=== PATIENT | male | born 1955 | race Caucasian/White ===

== ENCOUNTER 2017-02-02 07:54 | Inpatient (IN) ==
--- NOTE | 2017-02-01 21:07 | Discharge Summary ---
<Maryam Man - Last Filed: 02/01/17 21:05> Date of Encounter: 02/01/17 - Discharge Diagnosis (1) Rotator cuff tear arthropathy of right shoulder Priority: Primary Status: Acute (2) COPD (chronic obstructive pulmonary disease) Priority: Secondary Status: Chronic Qualifiers: COPD type: unspecified COPD Qualified Code(s): J44.9 - Chronic obstructive pulmonary disease, unspecified (3) Anxiety Priority: Secondary Status: Chronic (4) Tobacco use Priority: Secondary Status: Chronic (5) Hepatitis Priority: Secondary Status: Chronic (6) Mental health disorder Priority: Secondary Status: Acute (7) Chronic pain Priority: Secondary Status: Chronic Qualifiers: Chronic pain type: other chronic pain Qualified Code(s): G89.29 - Other chronic pain - Discharge Medications Home Medications: OxyCODONE Immed Rel [Roxicodone 5 MG] 5 - 10 mg PO Q6HR PRN #40 tablet 02/01/17 [Rx] Albuterol Sulfate [Ventolin Hfa] 2 puff IH Q6H PRN 02/02/17 [History] ClonazePAM [Klonopin] 1 mg PO TID 02/02/17 [History] Cyclobenzaprine HCl 5 mg PO TID 02/02/17 [History] Famotidine [Pepcid] 40 mg PO HS 02/02/17 [History] Quetiapine Fumarate [Seroquel] 50 mg PO HS 02/02/17 [History] Tiotropium [Spiriva] 18 mcg IH DAILY 02/02/17 [History] Allergies/Adverse Reactions: Allergies butorphanol [From Stadol] Adverse Reaction (Verified 02/02/17 09:04) See Comments MOOD CHANGES diphenhydramine [From Benadryl] Adverse Reaction (Verified 02/02/17 09:04) See Comments MOOD CHANGES hydroxyzine [From Vistaril] Adverse Reaction (Verified 02/02/17 09:04) See Comments MOOD CHANGES ketorolac [From Toradol] Adverse Reaction (Verified 02/02/17 09:04) See Comments MOOD CHANGES meloxicam [From Mobic] Adverse Reaction (Verified 02/02/17 09:04) See Comments MOOD CHANGES meperidine [From Demerol] Adverse Reaction (Verified 02/02/17 09:04) See Comments MOOD CHANGES Primary care physician: PCP NO - Patient Status Disposition: Home, Self-Care Condition: Good - Discharge Instructions Follow Up With: NO,PCP [Primary Care Provider] - Additional Instructions: Discharge Instructions: Total Shoulder Please call [facility] ([phone]), your Primary Care Physician, or report to the Emergency Room if you have any of the following symptoms: Nausea, vomiting, fever greater that 101.5, swelling, chest pain, shortness of breath, increased pain/redness/drainage/odor for your incision site, numbness/ tingling, or any other concerning symptoms. ACTIVITY: Always keep your arm in the sling. Do not raise your arm away from your body. Do not use your arm to help with getting in or out of bed. No weight bearing permitted. Only perform those exercises given to you by your therapist. MEDICATIONS: Upon discharge resume your home medications. Take all the medications as prescribed. Take a stool softener if taking narcotic pain medications. Stool softeners are only effective if you drink enough fluids. Drink 6-8 glass of water or fluids a day, unless this is not allowed for another health problem. Despite using stool softeners, if you haven't had a bowel movement in 3 days, please switch to a gentle laxative. Gentle laxatives are sold over the counter. You should have a bowel movement within 24 hours, if not call the office. You will be discharged from the hospital with a prescription for pain medication. You are encouraged to decrease the use of narcotic pain medication as tolerated. Should you require a refill, please call the office. [facility] prescribes narcotic pain medication for only 4-6 weeks after surgery. If you require pain medication beyond this time period, you may be referred to your Primary Care Physician or to the Pain Clinic for further evaluation. Plan ahead for refills on pain medication as many narcotics either need to be picked up at the office or mailed. It is best to call 48-72 hours in advance of needing a prescription refill so you don't run out of medication. To help control the post-operative pain, you may take NSAIDs (Aleve,Advil, Motrin, ibuprofen, naprosyn) or Tylenol as prescribed on the bottle in addition to the pain medication. WOUND CARE: Leave the dressing on for 7 days. You may change the dressing if it becomes saturated greater than 50%. You can shower but not a tub bath or submerge your incision in water. Wash your hands with antibacterial soap, rinse and dry prior to any wound care. If you have alexus the visiting nurse or rehab facility can remove the stapes 10-14 days after surgery and place steri -strips across the wound. Leave the steri-strips in place until they fall off on their won. You may let water from the shower run on top of the steri- stirips. If you do not have a visiting nurse or rehab facility, you will need to return to the office at 10-14 days for the alexus to be removed. FOLLOW-UP: Please follow up with your surgeon in the orthopedic clinic, as scheduled - Hospital Course Hospital course: Mr. Owens is a 61 year old male - Time Spent with Patient Total time spent providing and/or coordinating discharge services: <Jim Beavers - Last Filed: 02/03/17 06:25> Date of Encounter: 02/03/17 Time of Encounter: 06:25 - Discharge Diagnosis (1) Unstable reverse total shoulder arthroplasty Priority: Primary Status: Acute Qualifiers: Encounter type: subsequent encounter Qualified Code(s): T84.028D - Dislocation of other internal joint prosthesis, subsequent encounter (2) COPD (chronic obstructive pulmonary disease) Priority: Secondary Status: Chronic Qualifiers: COPD type: unspecified COPD Qualified Code(s): J44.9 - Chronic obstructive pulmonary disease, unspecified (3) Anxiety Priority: Secondary Status: Chronic (4) Tobacco use Priority: Secondary Status: Chronic (5) Hepatitis Priority: Secondary Status: Chronic (6) Mental health disorder Priority: Secondary Status: Chronic (7) Chronic pain Priority: Secondary Status: Chronic Qualifiers: Chronic pain type: other chronic pain Qualified Code(s): G89.29 - Other chronic pain (8) Loosening of total shoulder replacement Priority: Primary Status: Acute Qualifiers: Encounter type: subsequent encounter Qualified Code(s): T84.038D - Mechanical loosening of other internal prosthetic joint, subsequent encounter; Z96.619 - Presence of unspecified artificial shoulder joint Primary care physician: PCP NO - Patient Status Functional capacity at discharge: independent ambulation Overall status at discharge: patient is progressing back to baseline - Hospital Course Hospital course: Mr. Owens is a 61 year old male The patient had an uneventful postoperative course. They received antibiotics and physical therapy and were discharged in stable condition. There will follow -up in the office in 2 weeks. - Time Spent with Patient Total time spent providing and/or coordinating discharge services:
--- NOTE | 2017-02-02 08:03 | History & Physical Report ---
Date of Encounter: 02/02/17 Time of Encounter: 08:03 24 Hour HP Update - Instructions Instructions: If the History and Physical is less than 30 days old and was completed prior to A.M. admission and or procedure and has NOT been updated on calendar day of procedure please complete this update prior to performing procedure. - Update Patient reports changes in Medical Condition: No Changes in examination, assessment, or condition: No Changes in Medication: No Preop tests/diagnostics Reviewed: Yes Surgery Remains Indicated: Yes Consent for Planned Operative Procedure(s) Verified: Yes - Pre-Operative Checklist Preoperative Checklist Indicated: No Prophylactic Antibiotic Ordered: Yes Is VTE Prophylaxis Indicated?: Yes
[2017-02-02] MEDS ORDERED: Lidocaine -MPF 1% 2 ML VIAL ID ONE (08:19)
[2017-02-02] MEDS ORDERED: Vancomycin 1,000 MG in D5% in Water 250 ML IVPB ONE (08:19)
[2017-02-02] MEDS ORDERED: Albuterol 2.5 MG/3 ML NEBULIZER IH ONE (08:19)
[2017-02-02] MEDS ORDERED: Ringers Solution, Lactated 500 ML IVC SCH (08:30)
[2017-02-02] MEDS ORDERED: Famotidine 20 MG/2 ML VIAL IVP ONE (08:31)
--- NOTE | 2017-02-02 08:40 | Anesthesia Evaluation PreOp ---
Date of Encounter: 02/02/17 Time of Encounter: 08:40 - Past History Planned Operation: Rt Total Shoulder Replacement Cardiac History: HTN Pulmonary History: Smoker, Asthma, COPD MOTH EXTERMINATOR History: Denies Any Significant HX Other Medical History: Other (Anxiety...Schizophrenia) Anesthesia History: No Prior Anesthetic Complications Alcohol Use: none Drug use: none Medications and Allergies OxyCODONE Immed Rel [Roxicodone 5 MG] 5 - 10 mg PO Q6HR PRN #40 tablet 02/01/17 [Rx] Allergies butorphanol [From Stadol] Allergy (Verified 01/19/17 13:17) See Comments diphenhydramine [From Benadryl] Allergy (Verified 01/19/17 13:17) See Comments hydroxyzine [From Vistaril] Allergy (Verified 01/19/17 13:17) See Comments ketorolac [From Toradol] Allergy (Verified 01/19/17 13:17) See Comments meloxicam [From Mobic] Allergy (Verified 01/19/17 13:17) See Comments meperidine [From Demerol] Allergy (Verified 01/19/17 13:17) See Comments - Meds/Allergy Pre-op Review Medications Reviewed: Yes Allergies Reviewed: Yes Beta Blockers on Current Med List: No Anesthesia Results - Labs Laboratory Tests 01/19/17 01/19/17 13:30 13:30 Hgb 12.9 Hct 38.6 Plt Count 188 Sodium 139 Potassium 4.4 BUN 15 Creatinine 0.80 - Imaging EKG: pending Anesthesia Exam O2 Sat Height 1.8 m Weight 70.307 kg Height: 5'11 Weight: 155 lbs NPO (# of Hours): MN Pain Scale: 0 - HEENT Pupil (Motor): Pupils equal, EOMI Mallampati: II Teeth: Normal Oral Opening: Greater than 3 - MOTH EXTERMINATOR LOC: Oriented MOTH EXTERMINATOR Motor: Normal RUE, Normal LUE, Normal RLE, Normal LLE, Normal Face MOTH EXTERMINATOR Sensory: Normal: RUE, LUE, RLE, LLE, Face - Cardiac Rhythm: Regular Murmur: None JVD: No Carotid Bruit: No - Pulmonary Breath Sounds: bilateral Clear Respiratory Effort: Symmetrical Anesthesia Assess/Plan ASA Score: 3 (HTN COPD [place]) Modified [place] Scale for Level of Consciousness: Cooperative, oriented, and tranquil Anesthetic Plan: General, Regional Monitoring Plan: Standard Monitors Recovery Plan: PACU (Discussed GA and RA, agrees to proceed)
[2017-02-02] MEDS ORDERED: *HR* Propofol 200 MG/20 ML VIAL IVP ONE (08:46)
[2017-02-02] MEDS ORDERED: Ondansetron 4 MG/2 ML VIAL ONE (08:46)
[2017-02-02] MEDS ORDERED: *HR* FentaNYL (PF) 100 MCG/2 ML VIAL ONE (08:46)
[2017-02-02] MEDS ORDERED: *HR* Succinylcholine 200 MG/10 ML VIAL IVP ONE (08:46)
[2017-02-02] MEDS ORDERED: *HR* Midazolam HCl 2 MG/2 ML VIAL ONE (08:46)
[2017-02-02] MEDS ORDERED: Neostigmine Methylsulfate 3 MG/3 ML SYRINGE ONE (08:46)
[2017-02-02] MEDS ORDERED: *HR* Promethazine 25 MG/ML VIAL IVP PRN (08:54)
[2017-02-02] MEDS ORDERED: *HR* HYDROmorphone (PF) 1 MG/ML SYRINGE IVP PRN ×2 (08:54→12:00)
[2017-02-02] MEDS ORDERED: Ondansetron 4 MG/2 ML VIAL IVP ONE (08:54)
[2017-02-02] MEDS ORDERED: ROPIVACAINE HCL/PF 0.5% 30 ML VIAL ONE (09:34)
--- NOTE | 2017-02-02 09:53 | Anesthesia Procedures ---
Date of Encounter: 02/02/17 Time of Encounter: 09:35 Procedures: Anesthesia - Nerve Block Procedure Date: 02/02/17 Time: 09:35 Allergies/Adv Reactions: see list Surgical Procedure: right total shoulder Checklist: Correct Patient Identifier, Correct procedure, History checked Correct side: Right Blood Thinner: No Monitor Applied: BP, Pulse Oximetry Supplemental Oxygen via Nasal Cannula (L/min): 2 Sedation: Versed (mg): 2 Sedation: Fentanyl (mcg): 100 Indication: Post Op Analgesia Pre-op Neuro Deficits: No Block Type: Supraclavicular Catheter placed: No Sterile Technique: Yes Ultrasound used: Yes Anatomy identified: Yes Visual spread of Local: Yes Neuro Stimulation: No Blood on Needle Aspiration: No Smooth Injection of Local: Yes Pain with Injection of Local: No Prep: Chlorhexadine Needle: 22 x 50 mm Stimuplex Local: 0.25% Bupivicaine w/Clonidine 20 mcg/cc, Ropivacaine (30ml of 0.5%) Volume (cc): 50 Number of Attempts: 1 Complications: None/effective block Vitals: vss though out, block per request of audrey
[2017-02-02] MEDS ORDERED: Bupivacaine/Clonidine Syringe 1 EACH SYRINGE ONE (10:02)
[2017-02-02] MEDS ORDERED: EPHEDrine 50 MG/ML VIAL ONE (10:38)
--- NOTE | 2017-02-02 11:10 | Orthopedic Operative Note ---
Date of procedure: 02/02/17 Pre-op diagnosis: Aseptic loosening unstable right total shoulder Post-op diagnosis: same Procedure: Procedure: Right Revision Total Shoulder replacement reverse Estimated blood loss: 200 cc Hardware: Arthrex: Large glenoid baseplate, 24.5 screws one 6.5 screw, 42 lateral sphere, 11 stem 6 Carly Procedural Notes: Aseptic loosening of the humeral stem, significant glenoid wear. Operative procedure: The patient was brought to the operating room and placed on the operating room table. The patient was placed in the modified beachchair position. All pressure points were padded appropriately. And the head was stabilized in the neutral position. The operative extremity was prepped and draped in the sterile surgical fashion. The patient received IV antibiotics prior to skin incision. A standard deltopectoral approach was made to the operative shoulder. Incision was made through the old incision, through the skin and subcutaneous tissue, hemo stasis was obtained with Bovie cautery. Using careful blunt dissection the cephalic vein was identified and mobilized medially. The deltopectoral interval was developed and the clavipectoral fascia was incised. An extensive debridement was performed, and the shoulder was dislocated. Using an osteotome to clear out the soft tissue, the humeral component was gently removed. This was grossly loose. Anterior and posterior Bankart retractors were used to expose the glenoid, the glenoid component was removed without incident. The glenoid component showed significant glenoid poly-wear disease. The glenoid guide was seated the centering hole was made the glenoid was reamed with the appropriate large reamer. The large glenoid baseplate was seated and secured and locked in place with the locking screws. The baseplate was irrigated and dried 42 lateral glenosphere was seated and secured. Attention was then turned to the humeral side. The humerus was reamed and broached up to its appropriate size 11 in 20 degrees of retroversion. Trial reduction found the shoulder to be relocatable. Trial components were removed, real implants were seated. Trial reduction found the shoulder to be stable with the appropriate implants, 6 Carly. The trial implants were removed the real implants were seated and secured in the shoulder was reduced. The patient had excellent motion and excellent stability no shuck. The deep tissue was irrigated with pulse irrigation deltopectoral interval was closed with #2 PDS suture . Superficially the subcutaneous tissue was closed with 0 PDS suture, the skin was closed with Dermabond. The patient placed sterile dressing, postoperative brace extubated and transferred to the recovery room in stable condition. Anesthesia: GETA Surgeon: Jim Beavers Chronometer Repairer: Maryam Man Condition: stable Disposition: PACU
[2017-02-02 11:49] LABS: Hematocrit 33.6 % (37.5-50.1); Hemoglobin 11.2 g/dL (12.9-16.9)
--- NOTE | 2017-02-02 11:49 | Anesthesia Evaluation Post Op ---
Date of Encounter: 02/02/17 Time of Encounter: 11:50 - Vital Signs Vital Signs: Vital Signs/O2 Sat/Glucose, Most Current Temp Pulse Resp BP Pulse Ox 02/02/17 11:35 83 22 153/88 95 02/02/17 11:25 98.0 F 79 14 136/70 100 02/02/17 10:02 81 16 135/85 98 02/02/17 09:48 84 16 142/81 97 02/02/17 09:35 86 16 141/91 97 02/02/17 08:33 99.0 F 81 18 130/84 96 - Lungs Lungs: Clear Ascult./Percussion - Airway Airway: Non-obstructed - Cardiovascular Regular Rate - Mental Status Mental Status: Alert & Oriented, Answers Appropriately - Pain Pain Scale: 0 - Nausea Vomiting Nausea Vomiting: Not Present - Hydration Hydration: Ice chips - Discharge PostOp Status: Transfer Patient to floor
--- NOTE | 2017-02-02 11:55 | Anesthesia Evaluation Post Op ---
Date of Encounter: 02/02/17 Time of Encounter: 11:50 - Vital Signs Vital Signs: Last Vital Signs Temp 98.0 F 02/02/17 11:25 Pulse 84 02/02/17 11:45 Resp 20 02/02/17 11:45 BP 148/89 02/02/17 11:45 Pulse Ox 96 02/02/17 11:45 - Lungs Lungs: Clear Ascult./Percussion - Airway Airway: Non-obstructed - Cardiovascular Regular Rate - Mental Status Mental Status: Alert & Oriented, Answers Appropriately - Pain Pain Scale: 3 Pain Scale used: Numeric (1 - 10) - Nausea Vomiting Nausea Vomiting: Not Present - Hydration Hydration: Ice chips - Discharge PostOp Status: Transfer Patient to floor Attestation: Patient alert and communicative. Meets criteria for floor transfer.
[2017-02-02] MEDS ORDERED: Acetaminophen 325 MG TABLET PO PRN (12:00)
[2017-02-02] MEDS ORDERED: *HR* OxyCODONE Immed Rel 5 MG TABLET PO PRN ×2 (12:00)
[2017-02-02] MEDS ORDERED: Sennosides 8.6 MG TABLET PO PRN (12:00)
[2017-02-02] MEDS ORDERED: Ondansetron 4 MG/2 ML VIAL IVP PRN (12:00)
[2017-02-02] MEDS ORDERED: Temazepam 15 MG CAPSULE PO PRN (12:00)
[2017-02-02] MEDS ORDERED: Naloxone 0.4 MG/ML INJ IVP PRN (12:00)
[2017-02-02] MEDS ORDERED: Ringers Solution, Lactated 1,000 ML IVC SCH (12:00)
[2017-02-02] MEDS ORDERED: MOM Conc 10 ML UD.LIQ PO PRN (12:00)
[2017-02-02] MEDS ORDERED: clonazePAM 1 MG TABLET PO SCH (15:00)
[2017-02-02] MEDS ORDERED: *HR* Enoxaparin 30 MG/0.3 ML SYRINGE SQ SCH ×2 (15:30→18:00)
[2017-02-02] MEDS ORDERED: ceFAZolin 2,000 MG in D5% in Water 100 ML IVPB SCH (18:00)
--- NOTE | 2017-02-02 18:55 | Electrocardiograph Report ---
[address] [address] Test Date: 2017-02-02 Pat Name: Marcos Owens Department: 106 Room: [facility] Gender: M [employer] Consultant: LIDIA : [id number] Requested By: London Rushing Order Number: [id number] Reading MD: Ariel Bell MD Measurements Intervals [place] Rate: 79 P: 74 [place]: 159 QRS: -5 QRSD: 89 T: 44 QT: 366 QTc: 400 Interpretive Statements SINUS RHYTHM LOW QRS VOLTAGE IN EXTREMITY LEADS Electronically Signed On 02-02-2017 18:53:56 EDT by Ariel Bell MD
[2017-02-02 19:29] VITALS: BP 121/70
[2017-02-02] MEDS ORDERED: Famotidine 20 MG TABLET PO SCH (21:00)
[2017-02-03] MEDS ORDERED: Tiotropium 18 MCG inhalation IH SCH (09:00)
== END 2017-02-02 17:12 | disposition home or self-care (01) | DRG 315 ==
LOC: SAMDAY 07:54 → 3NENU 11:55
PROVIDERS: ADMIT Orthopaedic Surgery; ATTEND Orthopaedic Surgery

== ENCOUNTER 2018-02-22 13:44 | Inpatient (IN) ==
--- NOTE | 2018-02-21 22:50 | Discharge Summary ---
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 (3) Opioid-related disorder Priority: Secondary Status: Chronic (4) Schizophrenia Priority: Secondary Status: Chronic Qualifiers: Schizophrenia type: unspecified Qualified Code(s): F20.9 - Schizophrenia, unspecified (5) HTN (hypertension) Status: Acute (6) Asthma Priority: Secondary Status: Chronic Qualifiers: Asthma severity: unspecified severity Asthma persistence: unspecified Asthma complication type: unspecified Qualified Code(s): J45.909 - Unspecified asthma, uncomplicated (7) COPD (chronic obstructive pulmonary disease) Priority: Secondary Status: Chronic Qualifiers: COPD type: unspecified COPD Qualified Code(s): J44.9 - Chronic obstructive pulmonary disease, unspecified (8) Tobacco use Priority: Secondary Status: Chronic (9) Hepatitis Priority: Secondary Status: Chronic - Hospital Course Hospital course: Mr. Owens is a 62 year old male - Time Spent with Patient Total time spent providing and/or coordinating discharge services: - Discharge Medications Home Medications: Albuterol Sulfate [Ventolin Hfa] 2 puff IH Q6H PRN 02/02/17 [History] Famotidine [Pepcid] 40 mg PO HS 02/02/17 [History] Quetiapine Fumarate [Seroquel] 50 mg PO HS 02/02/17 [History] Tiotropium [Spiriva] 18 mcg IH DAILY 02/02/17 [History] clonazePAM [Klonopin] 1 mg PO TID PRN 02/02/17 [History] Buprenorphine HCl/Naloxone HCl [Bunavail 2.1-0.3 mg Film] 1 film BC BID [History] Cyanocobalamin (B-12) [Vitamin B12] 1 ml IJ QMONTH 02/22/18 [History] Ferrous Sulfate [Iron] 325 mg PO DAILY 02/22/18 [History] Fluticasone Propionate Nasal [Flonase] 1 spray NS DAILY 02/22/18 [History] Ibuprofen 800 mg PO TID PRN 02/22/18 [History] Loratadine [Claritin] 10 mg PO DAILY 02/22/18 [History] Oxycodone HCl 5 mg PO Q6H PRN 7 Days #28 tablet 02/22/18 [Rx] Tiotropium [place] [Spiriva Respimat] 1 puff IH DAILY 02/22/18 [History] Allergies/Adverse Reactions: 3 Allergy/AdvReac Type Severity Reaction Status Date / Time butorphanol [From Stadol] AdvReac See Verified 02/22/18 14:09 Comments diphenhydramine AdvReac See Verified 02/22/18 14:09 [From Benadryl] Comments hydroxyzine [From Vistaril] AdvReac See Verified 02/22/18 14:09 Comments ketorolac [From Toradol] AdvReac See Verified 02/22/18 14:09 Comments meloxicam [From Mobic] AdvReac See Verified 02/22/18 14:09 Comments meperidine [From Demerol] AdvReac See Verified 02/22/18 14:09 Comments Primary care physician: PCP NONE - Patient Status Disposition: Home, Self-Care Condition: Good - Discharge Instructions Follow Up With: NONE,PCP [Primary Care Provider] - <Jim Beavers - Last Filed: 02/23/18 06:37> Orders not resulted at time of discharge: Pending orders 02/22/18 01:00 XR shoulder complete RT [XR] Routine Hemoglobin and Hematocrit [HEME] Routine Date of Encounter: 02/23/18 Time of Encounter: 06:36 - Discharge Diagnosis (1) COPD (chronic obstructive pulmonary disease) Priority: Secondary Status: Chronic Qualifiers: COPD type: unspecified COPD Qualified Code(s): J44.9 - Chronic obstructive pulmonary disease, unspecified (2) Anxiety Priority: Secondary Status: Chronic (3) Tobacco use Priority: Secondary Status: Chronic (4) Hepatitis Priority: Secondary Status: Chronic (5) Mental health disorder Priority: Secondary Status: Chronic (6) Chronic pain Priority: Secondary Status: Chronic Qualifiers: Chronic pain type: other chronic pain Qualified Code(s): G89.29 - Other chronic pain (7) Loosening of total shoulder replacement Priority: Primary Status: Chronic Qualifiers: Encounter type: subsequent encounter Qualified Code(s): T84.038D - Mechanical loosening of other internal prosthetic joint, subsequent encounter; Z96.619 - Presence of unspecified artificial shoulder joint (8) Opioid-related disorder Priority: Secondary Status: Chronic (9) Schizophrenia Priority: Secondary Status: Chronic Qualifiers: Schizophrenia type: unspecified Qualified Code(s): F20.9 - Schizophrenia, unspecified (10) HTN (hypertension) Priority: Secondary Status: Acute Qualifiers: Hypertension type: unspecified Qualified Code(s): I10 - Essential (primary ) hypertension (11) Asthma Priority: Secondary Status: Chronic Qualifiers: Asthma severity: unspecified severity Asthma persistence: unspecified Asthma complication type: unspecified Qualified Code(s): J45.909 - Unspecified asthma, uncomplicated (12) Status post total replacement of right shoulder Priority: Primary Status: Chronic - Hospital Course Hospital course: Mr. Owens is a 62 year old male Status post revision right total shoulder. The patient had an uneventful postoperative course. They received antibiotics and physical therapy and were discharged in stable condition. There will follow -up in the office in 2 weeks. - Time Spent with Patient Total time spent providing and/or coordinating discharge services: Primary care physician: PCP NONE - Patient Status Functional capacity at discharge: independent ambulation Overall status at discharge: patient is progressing back to baseline
[2018-02-22] MEDS ORDERED: CeFAZolin Syr 2,000MG/20 ML 2,000 MG/20 ML SYRINGE IVPB ONE (14:06)
[2018-02-22] MEDS ORDERED: Albuterol 2.5 MG/3 ML NEBULIZER IH ONE (14:06)
[2018-02-22] MEDS ORDERED: Ringers Solution, Lactated 1,000 ML IVC SCH ×2 (14:15→18:19)
--- NOTE | 2018-02-22 14:19 | History & Physical Report ---
Date of Encounter: 02/22/18 Time of Encounter: 14:18 24 Hour HP Update - Instructions Instructions: If the History and Physical is less than 30 days old and was completed prior to A.M. admission and or procedure and has NOT been updated on calendar day of procedure please complete this update prior to performing procedure. - Update Patient reports changes in Medical Condition: No Changes in examination, assessment, or condition: No Changes in Medication: No Preop tests/diagnostics Reviewed: Yes Surgery Remains Indicated: Yes Consent for Planned Operative Procedure(s) Verified: Yes - Pre-Operative Checklist Preoperative Checklist Indicated: No Prophylactic Antibiotic Ordered: Yes Is VTE Prophylaxis Indicated?: Yes
--- NOTE | 2018-02-22 14:25 | Anesthesia Evaluation PreOp ---
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: Other (Anxiety, Schizophrenia) Other Medical History: GERD Anesthesia History: No Prior Anesthetic Complications, Past Anesthesia Alcohol Use: none Drug use: none Medications and Allergies Albuterol Sulfate [Ventolin Hfa] 2 puff IH Q6H PRN 02/02/17 [History] Famotidine [Pepcid] 40 mg PO HS 02/02/17 [History] Quetiapine Fumarate [Seroquel] 50 mg PO HS 02/02/17 [History] Tiotropium [Spiriva] 18 mcg IH DAILY 02/02/17 [History] clonazePAM [Klonopin] 1 mg PO TID PRN 02/02/17 [History] Buprenorphine HCl/Naloxone HCl [Bunavail 2.1-0.3 mg Film] 1 film BC BID [History] Cyanocobalamin (B-12) [Vitamin B12] 1 ml IJ QMONTH 02/22/18 [History] Ferrous Sulfate [Iron] 325 mg PO DAILY 02/22/18 [History] Fluticasone Propionate Nasal [Flonase] 1 spray NS DAILY 02/22/18 [History] Ibuprofen 800 mg PO TID PRN 02/22/18 [History] Loratadine [Claritin] 10 mg PO DAILY 02/22/18 [History] Oxycodone HCl 5 mg PO Q6H PRN 7 Days #28 tablet 02/22/18 [Rx] Tiotropium [place] [Spiriva Respimat] 1 puff IH DAILY 02/22/18 [History] 3 Allergy/AdvReac Type Severity Reaction Status Date / Time butorphanol [From Stadol] AdvReac See Verified 02/22/18 14:09 Comments diphenhydramine AdvReac See Verified 02/22/18 14:09 [From Benadryl] Comments hydroxyzine [From Vistaril] AdvReac See Verified 02/22/18 14:09 Comments ketorolac [From Toradol] AdvReac See Verified 02/22/18 14:09 Comments meloxicam [From Mobic] AdvReac See Verified 02/22/18 14:09 Comments meperidine [From Demerol] AdvReac See Verified 02/22/18 14:09 Comments - Meds/Allergy Pre-op Review Medications Reviewed: Yes Allergies Reviewed: Yes Beta Blockers on Current Med List: No Anesthesia Results - Labs Laboratory Tests 02/12/18 02/12/18 11:40 11:40 Hgb 12.5 L Plt Count 160 Potassium 4.0 Creatinine 0.71 - Imaging EKG: report reviewed (SINUS RHYTHM LOW QRS VOLTAGE IN EXTREMITY LEADS) Anesthesia Exam O2 Sat Height 1.75 m Weight 71.668 kg Vital Signs/O2 Sat, Most Current Temp Pulse Resp BP Pulse Ox 98.1 F 86 18 147/88 97 02/22/18 14:27 02/22/18 14:27 02/22/18 14:27 02/22/18 14:27 02/22/18 14:27 NPO (# of Hours): 8 - HEENT Mallampati: II Teeth: Normal, Poor dentition Oral Opening: Greater than 3 - FILLER SPREADER LOC: Oriented (Anxious) - Cardiac Rhythm: Regular - Pulmonary Breath Sounds: bilateral Clear Anesthesia Assess/Plan ASA Score: 3 Modified [place] Scale for Level of Consciousness: Anixous, agitated or restless Anesthetic Plan: General, Regional (For postoperative pain per surgeon request) Monitoring Plan: Standard Monitors Recovery Plan: PACU Anes Supervising Prov Stmt: Patient informed and consented. Risks, benefits, and alternatives discussed. Patient wishes to proceed.
[2018-02-22] MEDS ORDERED: Lidocaine -MPF 2% 2 ML VIAL ONE (14:50)
[2018-02-22] MEDS ORDERED: *HR* FentaNYL (PF) 100 MCG/2 ML VIAL ONE (14:50)
[2018-02-22] MEDS ORDERED: *HR* Midazolam HCl 2 MG/2 ML VIAL ONE (14:50)
[2018-02-22] MEDS ORDERED: *HR* Propofol 200 MG/20 ML VIAL IVP ONE (14:50)
[2018-02-22] MEDS ORDERED: Propofol 500 MG/50 ML INFUS..BTL ONE (15:08)
[2018-02-22] MEDS ORDERED: ROPIVACAINE HCL/PF 0.5% 30 ML VIAL ONE (15:23)
[2018-02-22] MEDS ORDERED: Bupivacaine/Clonidine Syringe 1 EACH SYRINGE ONE (15:23)
[2018-02-22] MEDS ORDERED: Ethanol\\Acetic Acid\\Na Ace\\Ben 1,000 ML IRRIG.SOLN IR ONE (15:33)
[2018-02-22] MEDS ORDERED: Lidocaine -MPF 4% 5 ML AMPUL ONE (15:35)
[2018-02-22] MEDS ORDERED: Ondansetron 4 MG/2 ML VIAL ONE (16:07)
[2018-02-22] MEDS ORDERED: Dexamethasone 4 MG/ML VIAL ONE ×2 (16:19→17:05)
[2018-02-22] MEDS ORDERED: *HR* Promethazine 25 MG/ML VIAL IVP PRN (16:33)
[2018-02-22] MEDS ORDERED: *HR* Meperidine 25 MG/ML SYRINGE IVP PRN (16:33)
[2018-02-22] MEDS ORDERED: *HR* OxyCODONE Immed Rel 5 MG TABLET PO PRN (16:33)
--- NOTE | 2018-02-22 16:42 | Anesthesia Procedures ---
Date of Encounter: 02/22/18 Time of Encounter: 15:55 Procedures: Anesthesia - Nerve Block Procedure Date: 02/22/18 Time: 15:55 Surgical Procedure: right shoulder revision Checklist: Correct Patient Identifier, Correct procedure, History checked Correct side: Right Blood Thinner: No Monitor Applied: EKG, BP, Pulse Oximetry Supplemental Oxygen via Nasal Cannula (L/min): 2 Sedation: Versed (mg): 2 Sedation: Fentanyl (mcg): 100 Indication: Post Op Analgesia Block Type: Supraclavicular, Other (ICB/ICP) Catheter placed: No Sterile Technique: Yes Ultrasound used: Yes Anatomy identified: Yes Visual spread of Local: Yes Neuro Stimulation: No Blood on Needle Aspiration: No Smooth Injection of Local: Yes Pain with Injection of Local: No Prep: Chlorhexadine Needle: 22 x 50 mm Stimuplex Local: 0.25% Bupivicaine w/Clonidine 20 mcg/cc (15 ml total), Ropivacaine (30 ml ) Volume (cc): 45 Number of Attempts: 1 Complications: None/effective block Vitals: Vital Signs/O2 Sat/Glucose, Most Recent Temp Pulse Resp BP Pulse Ox 98.1 F 86 18 140/86 99 02/22/18 14:27 02/22/18 16:04 02/22/18 14:27 02/22/18 16:04 02/22/18 16:04
--- NOTE | 2018-02-22 17:04 | Orthopedic Operative Note ---
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 Operative procedure: The patient was brought to the operating room and placed on the operating room table. The patient was placed in the modified beachchair position. All pressure points were padded appropriately. And the head was stabilized in the neutral position. The operative extremity was prepped and draped in the sterile surgical fashion. The patient received IV antibiotics prior to skin incision. A standard deltopectoral approach was made to the operative shoulder. Incision was made through the old incision, through the skin and subcutaneous tissue, hemo stasis was obtained with Bovie cautery. Using careful blunt dissection the cephalic vein was identified and mobilized medially. The deltopectoral interval was developed and the clavipectoral fascia was incised. Fluid was consistent with normal fluid and cultures were obtained. An extensive debridement was performed, and the shoulder was dislocated. The humeral component was disassembled and the humeral stem was removed after disrupting the proximal fixation with a straight osteotome. Attention was then turned towards the glenoid, the glenoid component was loose. Component was removed without incident. Patient had good glenoid bone. Soft tissues removed the centering pin was placed slightly anterior and inferior to the previous centering hole. The glenoid component was fixed without incident with the defect within the glenoid filled with DBX bone stimulating protein with one 6.5 screw and 24.5 this gave excellent fixation. The 42+4 [place] was seated and secured. The humerus was reamed and broached up to its appropriate size 11 in 20 degrees of retroversion. Trial reduction found the shoulder to be relocatable. Trial components were removed, real implants were seated. Trial reduction found the shoulder to be stable with the +12 metal and 3 Carly implants. The trial implants were removed the real implants were seated and secured in the shoulder was reduced. The patient had excellent motion and excellent stability no shuck. The deep tissue was irrigated with pulse irrigation the PA close shoulder. deltopectoral interval was closed with #2 PDS suture. Superficially the subcutaneous tissue was closed with 0 PDS suture, the skin was closed with alexus. The patient placed sterile dressing, postoperative brace extubated and transferred to the recovery room in stable condition. Anesthesia: GETA Surgeon: Jim Beavers Was there an certified ophthalmic surgical assistant present: Yes Nut Grinder: Maryam Man Estimated blood loss (cc): 100 Condition: stable Disposition: PACU
[2018-02-22] MEDS ORDERED: *HR* Succinylcholine 200 MG/10 ML VIAL IVP ONE (17:05)
--- NOTE | 2018-02-22 17:59 | Anesthesia Evaluation Post Op ---
Date of Encounter: 02/22/18 Time of Encounter: 17:58 - Vital Signs Vital Signs: Vital Signs/O2 Sat, Most Current Temp Pulse Resp BP Pulse Ox 97.2 F L 78 16 143/90 100 02/22/18 17:25 02/22/18 17:45 02/22/18 17:45 02/22/18 17:35 02/22/18 17:45 - Lungs Lungs: Clear Ascult./Percussion - Airway Airway: Non-obstructed - Cardiovascular Regular Rate - Mental Status Mental Status: Asleep with brisk response to light stimulation - Pain Pain Scale used: Unable to assess (patient does not give a number. States pain is tolerable.) - Nausea Vomiting Nausea Vomiting: Not Present - Hydration Hydration: Ice chips, Has not voided - Discharge PostOp Status: Transfer Patient to floor
[2018-02-22] MEDS ORDERED: *HR* Enoxaparin 30 MG/0.3 ML SYRINGE SQ SCH (18:00)
[2018-02-22 18:06] LABS: Hematocrit 35.2 % (37.5-50.1)
[2018-02-22] MEDS ORDERED: Naloxone 0.4 MG/ML INJ IVP PRN (18:19)
[2018-02-22] MEDS ORDERED: Sennosides 8.6 MG TABLET PO PRN (18:19)
[2018-02-22] MEDS ORDERED: Ondansetron 4 MG/2 ML VIAL IVP PRN (18:19)
[2018-02-22] MEDS ORDERED: traMADol 50 MG TABLET PO PRN (18:19)
[2018-02-22] MEDS ORDERED: *HR* OxyCODONE/APAP 5/325 TABLET PO PRN (18:19)
[2018-02-22] MEDS ORDERED: MOM Conc 10 ML UD.LIQ PO PRN (18:19)
[2018-02-22] MEDS ORDERED: Temazepam 15 MG CAPSULE PO PRN (18:19)
[2018-02-22] MEDS ORDERED: CeFAZolin Pre 2,000 MG/100 ML 2,000 MG/100 ML BAG IVPB SCH (19:30)
[2018-02-22] MEDS: *HR* OxyCODONE Immed Rel 5 MG TABLET PO PRN (20:54)
[2018-02-22] MEDS: BUPRENORPHINE PO SCH (20:55)
[2018-02-22] MEDS: NALOXONE PO SCH (20:55)
[2018-02-22] MEDS ORDERED: Famotidine 20 MG TABLET PO SCH (21:00)
[2018-02-22] MEDS: Ibuprofen 800 MG TABLET PO SCH (22:01)
[2018-02-22] MEDS: clonazePAM 1 MG TABLET PO PRN (22:01)
[2018-02-23] MEDS: CeFAZolin Pre 2,000 MG/100 ML 2,000 MG/100 ML BAG IVPB SCH ×2 (00:07→08:11)
[2018-02-23 01:11] LABS: Hematocrit 32.4 % (37.5-50.1); Hemoglobin 11.1 g/dL (12.9-16.9)
[2018-02-23] MEDS ORDERED: *HR* Enoxaparin 30 MG/0.3 ML SYRINGE SQ SCH (06:00)
--- NOTE | 2018-02-23 06:38 | Orthopedics Progress Note ---
Date of Encounter: 02/23/18 Time of Encounter: 06:37 - Assessment and Plan (1) COPD (chronic obstructive pulmonary disease) Current Visit: No Status: Chronic Qualifiers: COPD type: unspecified COPD Qualified Code(s): J44.9 - Chronic obstructive pulmonary disease, unspecified (2) Anxiety Current Visit: No Status: Chronic (3) Tobacco use Current Visit: No Status: Chronic (4) Hepatitis Current Visit: No Status: Chronic (5) Mental health disorder Current Visit: No Status: Chronic (6) Chronic pain Current Visit: No Status: Chronic Qualifiers: Chronic pain type: other chronic pain Qualified Code(s): G89.29 - Other chronic pain (7) Loosening of total shoulder replacement Current Visit: No Status: Chronic Qualifiers: Encounter type: subsequent encounter Qualified Code(s): T84.038D - Mechanical loosening of other internal prosthetic joint, subsequent encounter; Z96.619 - Presence of unspecified artificial shoulder joint (8) Opioid-related disorder Current Visit: No Status: Chronic (9) Schizophrenia Current Visit: No Status: Chronic Qualifiers: Schizophrenia type: unspecified Qualified Code(s): F20.9 - Schizophrenia, unspecified (10) HTN (hypertension) Current Visit: No Status: Acute Qualifiers: Hypertension type: unspecified Qualified Code(s): I10 - Essential (primary ) hypertension (11) Asthma Current Visit: No Status: Chronic Qualifiers: Asthma severity: unspecified severity Asthma persistence: unspecified Asthma complication type: unspecified Qualified Code(s): J45.909 - Unspecified asthma, uncomplicated (12) Status post total replacement of right shoulder Current Visit: No Status: Chronic Subjective Interval history: Patient was seen this morning doing well without complaints. Afebrile vital signs stable. Operative extremity: Neurovascularly intact Dressing clean dry and intact Calves nontender Assessment and plan: Continue with postoperative care Hematocrit 32 discharged today Objective Vital signs: Vital Signs Temp Pulse Resp BP Pulse Ox 02/23/18 03:25 97.8 F 86 14 119/74 99 02/23/18 00:11 98.2 F 86 14 101/65 93 02/22/18 21:22 97.6 F 83 16 145/88 99 02/22/18 21:07 18 98 02/22/18 20:41 97.5 F L 93 15 148/90 100 02/22/18 19:20 98.4 F 90 16 136/79 98 02/22/18 18:41 97.6 F 80 14 157/94 100 02/22/18 18:20 97.5 F L 82 17 148/93 98 02/22/18 17:55 97.4 F L 85 16 157/92 100 02/22/18 17:45 78 16 163/94 100 02/22/18 17:35 76 16 143/90 100 02/22/18 17:25 97.2 F L 80 14 119/75 100 02/22/18 16:04 86 140/86 99 02/22/18 15:49 89 129/87 100 02/22/18 14:27 98.1 F 86 18 147/88 97 Intake and Output 02/22/18 02/22/18 02/23/18 15:59 23:59 07:59 Intake Total 0 / 0 100 / 100 Output Total 525 / 525 0 / 0 Balance -525 / -525 100 / 100 Intake: IV Fluids 100 / 100 Ancef Premix 2,000 MG/100 ML 2, 100 / 100 000 mg In 100 ml @ 200 mls/hr IVPB Q8HR [facility] Rx#:[id number] Oral 0 / 0 0 / 0 Output: Urine 425 / 425 0 / 0 Estimated Blood Loss 100 / 100 Other: Weight 71.668 kg - Labs CBC & BMP: 02/23/18 00:47 Labs: Abnormal lab results Hgb 11.1 g/dL (12.9-16.9) L 02/23/18 00:47 Hct 32.4 % (37.5-50.1) L 02/23/18 00:47 - VTE Documentation of Mechanical Device: Venous foot pump, device Consult Discharge Plan - Plan Referrals: NONE,PCP [Primary Care Provider] -
[2018-02-23 06:58] VITALS: BP 102/63
[2018-02-23] MEDS: Ibuprofen 800 MG TABLET PO SCH (08:11)
[2018-02-23] MEDS: *HR* OxyCODONE Immed Rel 5 MG TABLET PO PRN ×2 (08:15→13:05)
[2018-02-23] MEDS ORDERED: Fluticasone Propionate Nasal 50 MCG/SPRAY BOTTLE NS SCH (09:00)
[2018-02-23] MEDS ORDERED: Loratadine 10 MG TABLET PO SCH (09:00)
[2018-02-23] MEDS ORDERED: NON-FORMULARY MEDICATION 1 EACH EACH (Tiotropium Bromide [Spiriva Respimat] 1 PUFF) IH SCH (09:00)
[2018-02-23] MEDS: BUPRENORPHINE PO SCH (09:55)
[2018-02-23] MEDS: NALOXONE PO SCH (09:55)
[2018-02-23] MEDS ORDERED: Tiotropium 18 MCG inhalation IH SCH (10:00)
[2018-02-23] MEDS: clonazePAM 1 MG TABLET PO PRN (11:51)
== END 2018-02-23 13:46 | disposition home or self-care (01) | DRG 322 ==
LOC: SAMDAY 13:44 → 3NENU 18:20
PROVIDERS: ADMIT Orthopaedic Surgery; ATTEND Orthopaedic Surgery